=== PATIENT | male | born 1955 | race African-American/Black ===

== ENCOUNTER 2016-12-04 16:17 | Emergency (ER) | payer MEDICARE ==
[~2016-12-04 16:17] MED LIST: Z.0.NO CURRENT MEDS
[2016-12-04 16:18] VITALS: BP 149/90; PULSE 122; RESP 24; TEMP 97.7; O2SAT 99
== END 2016-12-04 17:15 | disposition left against medical advice (07) ==
LOC: NED 16:17
DX: Z53.21 Procedure and treatment not carried out due to patient leaving prior to being seen by health care provider (principal)
CPT/HCPCS: 99281